=== PATIENT | male | born 1965 | race Caucasian/White ===

== ENCOUNTER → 2017-11-08 11:53 | Outpatient (CLI) | payer BC, SELFPAY ==
--- NOTE | 2017-11-08 11:58 | XR_ITS ---
XR knee LT 3V HISTORY: Knee pain ITS.REASON: OA OF BILAT KNEES ORDERING PHYSICIAN: Chavez Bonilla MD PATIENT AGE: 52 years COMPARISON: None FINDINGS: No fracture or dislocation. No lytic or blastic change. Normal mineralization. Minimal osteoarthritic changes are present at the patellofemoral joint with minimal spurring along the lateral compartment with minimal spurring. No other significant findings IMPRESSION: Minimal osteoarthritic change left knee
--- NOTE | 2017-11-08 11:58 | XR_ITS ---
XR knee RT 3V HISTORY: Knee pain ITS.REASON: OA OF BILAT KNEES ORDERING PHYSICIAN: Chavez Bonilla MD PATIENT AGE: 52 years COMPARISON: None FINDINGS: No fracture or dislocation. No lytic or blastic change. Normal mineralization. Minimal osteoarthritic changes involving medial compartment and patellofemoral joint with slight decrease in joint space medially and minimal osteophyte formation at the superior patella. An 8 mm metallic fragment is present along the medial aspect of the knee medial to the femoral condyle. No other significant findings IMPRESSION: Minimal osteoarthritic change. Metallic foreign body along the medial aspect of the knee
== END ==
PROVIDERS: PCP Family Medicine; Visit Provider Family Medicine
DX: M17.0 Bilateral primary osteoarthritis of knee (principal)
CPT/HCPCS: 73562

== ENCOUNTER → 2019-08-27 09:33 | Outpatient (CLI) | payer BC, SELFPAY ==
--- NOTE | 2019-08-27 09:41 | XR_ITS ---
PROCEDURE: XR SHOULDER LT MIN 2V CLINICAL INDICATION: shoulder pain The decreased range of motion COMPARISON: No exams were available for comparison FINDINGS: Mild osteoarthritic changes are present at the acromioclavicular joint. Small subarticular cystic areas present at the greater tuberosity of the humerus along with some mild subacromial stenosis. These findings may be seen with rotator cuff disease. No acute fracture or dislocation IMPRESSION: Mild osteoarthritic change acromioclavicular joint with subacromial stenosis Dictated by: Jermaine Duffy MD 08/27/2019 11:00 Electronically signed by Jermaine Duffy MD in [place] 08/27/2019 11:00
== END ==
PROVIDERS: PCP Family Medicine; Visit Provider Orthopaedic Surgery
DX: M75.102 Unspecified rotator cuff tear or rupture of left shoulder, not specified as traumatic (principal)
CPT/HCPCS: 73030

== ENCOUNTER → 2019-09-06 12:54 | Outpatient (CLI) | payer BC, SELFPAY ==
--- NOTE | 2019-09-06 13:00 | XR_ITS ---
PROCEDURE: XR ORBIT BILATERAL MIN 4V CLINICAL INDICATION: RULE OUT METAL FOREIGN BODY FOR MRI History of metal in both eyes COMPARISON: No exams were available for comparison FINDINGS: There is a persistent small opacity overlying the mid aspect of the right orbit. This was persistent on 2 different sets of images with patient looking and down. This does not have a metallic appearance but could be related to small piece of glass. There is however somewhat similar appearing density on the left but not as prominent. We were hesitant in performing an MRI due to this finding and asked that the patient have a CT scan of the orbits for further evaluation. IMPRESSION: Possible foreign body in the right orbit. CT suggested for confirmation before performing an MRI. The patient was scheduled for a MR arthrogram of the right shoulder. A CT arthrogram could also be performed if clinically desired. Dictated by: Jermaine Duffy MD 09/07/2019 09:01 Electronically signed by Jermaine Duffy MD in [place] 09/07/2019 09:01
== END ==
PROVIDERS: PCP Family Medicine; Visit Provider Orthopaedic Surgery
DX: H05.53 Retained (old) foreign body following penetrating wound of bilateral orbits (principal); M25.512 Pain in left shoulder
CPT/HCPCS: 70200

== ENCOUNTER → 2021-08-06 08:55 | Outpatient (CLI) | payer BC, SELFPAY | PROVIDERS: PCP Family Medicine; Visit Provider Nurse Practitioner | DX: Z20.822 Contact with and (suspected) exposure to COVID-19 (principal) | CPT/HCPCS: C9803; U0003; U0005 ==

== ENCOUNTER → 2023-05-17 11:20 | Outpatient (CLI) | payer BC, SELFPAY ==
--- NOTE | 2023-05-17 11:26 | XR_ITS ---
FINAL REPORT CLINICAL HISTORY: TRAPEZIUS MUSCLE SPASM pain in shoulder x 1 month FINDINGS: 2 views of the left shoulder were obtained. There is no prior exam for comparison. There is no fracture or dislocation. There is AC joint degenerative disease. Soft tissues are normal. IMPRESSION: No acute osseous abnormality of the left shoulder. Reviewed, Interpreted and Dictated by Miguelina Gaming MD Transcribed by Junito Melchor Authenticated and [facility]
== END ==
PROVIDERS: PCP Family Medicine; Visit Provider Nurse Practitioner
DX: M62.838 Other muscle spasm (principal)
CPT/HCPCS: 73030